=== PATIENT | female | born 1980 | race Caucasian/White ===

== ENCOUNTER 2017-10-31 06:05 | Day surgery (SDC) | payer OTHER | END 2017-10-31 14:25 | disposition home or self-care (01) | LOC: CIR.AMB 06:05 | DX: N84.0 Polyp of corpus uteri (principal) ==

== ENCOUNTER 2022-06-03 12:35 | Inpatient (IN) | payer OTHER ==
[~2022-06-03] VITALS: Ht 167.6 cm; Wt 70.8 kg
[2022-06-09] MEDS ORDERED: IBUPROFEN800 MG PO (06:26)
[2022-06-09] MEDS ORDERED: NEURONTIN600 MG PO (06:26)
[2022-06-09] MEDS ORDERED: POLY119PG PO (06:26)
[2022-06-09] MEDS ORDERED: SIMETHICONE125 M1 PO (06:27)
== END 2022-06-09 10:01 | disposition home or self-care (01) | DRG 743 ==
LOC: ADM 06-04 11:15 → EDSTATUS 06-04 11:15 → O/R 06-07 05:55 → OB/GYN 06-07 07:00
PROVIDERS: ADMIT Obstetrics & Gynecology; ATTEND Obstetrics & Gynecology
PROC: 0UT60ZZ Resection of Left Fallopian Tube, Open Approach (ICD-10-PCS; 2022-06-07)
PROC: 0UT90ZZ Resection of Uterus, Open Approach (ICD-10-PCS; principal; 2022-06-07 07:00)
DX: D25.1 Intramural leiomyoma of uterus (principal); N72 Inflammatory disease of cervix uteri; Z20.822 Contact with and (suspected) exposure to COVID-19